=== PATIENT | female | born 1995 | race Caucasian/White ===

== ENCOUNTER 2016-08-13 13:37 | Emergency (ER) | payer OTHER ==
[~2016-08-13 13:37] MED LIST: Iopamidol 370 76% 100 ML VIAL ONE
[2016-08-13] MEDS ORDERED: Sodium Chloride 0.9% 1,000 ML ONE (14:07)
[2016-08-13] MEDS ORDERED: Acetaminophen 500 MG TAB ONE (14:08)
[2016-08-13 14:14] LABS: Blood, Urine Small (Negative); Clarity Slightly Cloudy (Clear); Glucose, Urine (Dipstick) Negative (Negative); Leukocyte Moderate (Negative); Nitrite Positive (Negative); Protein, Urine (Dipstick) 100 mg/dL (Neg-Trace); pH, Urine 6.5 (5.0-9.0)
[2016-08-13 14:16] LABS: Pregnancy Test - Urine (BHCG) Negative (NEGATIVE)
[2016-08-13 14:17] LABS: Pregu Control Background? CLEAR/WHITE (CLR/WHITE); Pregu Control Bar Appear? YES (CONTROL BAR)
[2016-08-13 14:21] LABS: Bilirubin Negative (Negative); Icto Negative (Negative)
[2016-08-13 14:23] LABS: Bacteria/HPF 3+ HPF (None Seen); Other Microscopic Description NO; WBC/HPF 21-50 HPF (0-3)
[2016-08-13 14:25] LABS: ALT (SGPT) 39 U/L (8-55); AST (SGOT) 32 U/L (5-34); Albumin 4.2 g/dL (3.5-5.0); Alkaline Phosphatase 111 U/L (40-150); Anion Gap 17 mmol/L (10-20); BUN (Urea Nitrogen) 8 mg/dL (7.0-18.7); Bilirubin, Total 1.5 mg/dL (0.2-1.2); Calc. Creatinine Clearance 0 mL/min (70-130); Calcium 9.2 mg/dL (7.8-10.44); Carbon Dioxide 22 mmol/L (22-29); Chloride 101 mmol/L (98-107); Estimated GFR-MDRD Greater than 90; Globulin 3.5 g/dL (2.4-3.5); Potassium 3.8 mmol/L (3.5-5.1); Protein, Total 7.7 g/dL (6.0-8.3); Sodium 136 mmol/L (136-145)
[2016-08-13 14:29] LABS: Hemoglobin 12.4 g/dL (12.0-16.0); Mean Corpuscular HGB CONC 32.2 g/dL (32.0-36.0); Mean Corpuscular Hemoglobin 28.4 pg (27.0-31.0); Mean Corpuscular Volume 88.3 fl (81.0-99.0); Mean Platelet Volume 6.1 fL (7.4-10.4); Platelet Count 289 thou/uL (130-400); RBC Distribution Width 12.4 % (11.5-14.5); Red Blood Cell (RBC) Count 4.37 mill/uL (4.20-5.40); White Blood Cell (WBC) Count 20.3 thou/uL (4.8-10.8)
[2016-08-13 14:31] LABS: Band 2 % (5-11); Lymphocytes 15 % (21-51); MDiff Complete? YES; Monocytes 9 % (0-10); Neutrophil 73 % (42-75); PLT Morphology Comment Appears Adequate; Reactive Lymphocytes 1 % (0-10)
[2016-08-13] MEDS ORDERED: Ketorolac Tromethamine 30 MG/ML VIAL ONE (14:31)
[2016-08-13 14:33] LABS: Glucose 90 mg/dL (70-105)
[2016-08-13] MEDS ORDERED: cefTRIAXone\\ROCEPHIN 2 GM VIAL ONE (14:34)
[2016-08-13] MEDS ORDERED: Sodium Chloride 0.9% 100 ML ONE (14:34)
--- NOTE | 2016-08-13 15:18 | CT ---
ABDOMEN AND PELVIC CT SCAN WITH IV CONTRAST: Date: 08/13/16 HISTORY: 21-year-old female with 1 week of back and flank pain, with chills and fever. FINDINGS: The lung bases are clear. The visualized liver, gallbladder, pancreas, spleen, and adrenal glands are unremarkable. No renal c alculus or acute obstruction. There are multiple heterogeneous areas of abnormal low attenuation involving the left kidney, evidence for pyelonephritis. No hydronephrosis. No overt ureteral calculu s. Normal appearing appendix. Trace free fluid in the pelvis and cul-de-sac. Unremarkable uterus and adnexal regions. Minimally dilated loops of small bowel in the left abdomen without significant abn ormal wall thickening possibly related to some focal ileus from the left-sided pyelonephritis. IMPRESSION: Left-sided pyelonephritis without evidence of renal calculus or acute obstruction. Abnormal small bowel dilatation, evidence for ileus secondary to pyelonephritis. Normal appearing appendix. Trace free fluid in the pelvis with unremarkable adnexa and uterus. POS: [facility]
[2016-08-13] MEDS ORDERED: Ondansetron ODT 4 MG TAB ONE ×2 (15:26→15:27)
[2016-08-13] MEDS ORDERED: Ciprofloxacin 500 MG TAB ONE (15:51)
== END 2016-08-13 16:18 | disposition home or self-care (01) ==
LOC: NAV ERS 13:37
DX: N12 Tubulo-interstitial nephritis, not specified as acute or chronic (principal)
CPT/HCPCS: 74177; 80053; 81003; 81015; 81025; 85025; 87077; 87086; 87186; 96361; 96365; 96375; J0696; J1885; J7050; Q0162

== ENCOUNTER 2018-07-16 13:33 | Emergency (ER) | payer OTHER ==
[2018-07-16] MEDS ORDERED: Ibuprofen 800 MG TAB ONE (13:50)
--- NOTE | 2018-07-16 14:14 | RAD ---
EXAM: Right hand: 3 views INDICATIONS: Injury COMPARISON: None. FINDINGS: Carpals, metacarpals, and phalanges appear intact. No osseous abnormality identified. IMPRESSION: No acute finding
== END 2018-07-16 14:20 | disposition home or self-care (01) ==
LOC: NAV ERS 13:33
DX: S60.221A Contusion of right hand, initial encounter (principal); F17.210 Nicotine dependence, cigarettes, uncomplicated; Z71.6 Tobacco abuse counseling; W19.XXXA Unspecified fall, initial encounter
CPT/HCPCS: 99406

== ENCOUNTER 2019-05-17 11:22 | Emergency (ER) | payer SELFPAY | END 2019-05-17 11:55 | disposition home or self-care (01) | LOC: NAV ERS 11:22 | DX: Z02.1 Encounter for pre-employment examination (principal); F17.210 Nicotine dependence, cigarettes, uncomplicated | CPT/HCPCS: 99281 ==

== ENCOUNTER 2019-10-14 17:51 | Emergency (ER) | payer OTHER, SELFPAY | END 2019-10-14 18:20 | disposition home or self-care (01) | LOC: NAV ERS 17:51 | DX: K02.9 Dental caries, unspecified (principal); F17.210 Nicotine dependence, cigarettes, uncomplicated | CPT/HCPCS: 99281 ==